=== PATIENT | male | born 1960 | race African-American/Black ===

== ENCOUNTER 2016-06-28 11:39 | Emergency (ER) | payer SELFPAY ==
[~2016-06-28] VITALS: Ht 188 cm; Wt 133.8 kg
[~2016-06-28 11:39] MED LIST: CIPR500T94 PO; ONDA8TAB12 PO; [UNRECOGNIZED DRUG - OTHER]
[2016-06-28 12:23] VITALS: BP 127/84
[2016-06-28 13:05] LABS: BILIRUBIN,URINE NEGATIVE (NEG); GLUCOSE,URINE NEGATIVE (NEG); NITRITE,URINE NEGATIVE (NEG); PH,URINE 5.5; PROTEIN,URINE NEGATIVE (NEG-TRACE)
--- NOTE | 2016-06-28 13:12 | RAD ---
Indication chest pain tachycardia nausea. Aeration of symptoms 2 days. PA and lateral views of the chest were obtained. Comparison is made to an exam 10/30/2015. On the frontal image there is a density at the right lung base medially. This could represent a vascular shadow. A small area of infiltrate or pulmonary nodule cannot be entirely excluded. Follow-up imaging should be considered. The left lung is clear. There is no pleural fluid or pneumothorax. The heart and pulmonary vessels are normal. IMPRESSION: Possible small nodule or infiltrate at the right lung base medially
[2016-06-28 13:21] LABS: BACTERIA,URINE 0 /HPF (0-FEW); RBC,URINE 0 /HPF (0-2); SQUAMOUS EPITHELIAL CELL,UR MOD /LPF
--- NOTE | 2016-06-28 13:39 | ED.ADGEN ---
Past Medical History Past Medical History: No Pertinent History Past Surgical History: Other Additional Past Surgical Histo: left knee, right shoulder Alcohol Use: None Drug Use: None Adult General Chief Complaint Chief Complaint: FEVER HPI HPI Patient is a 56 year old -[place] male presents with those, flank pain and urinary frequency. No fever, sweats. Reports one episode of vomiting yesterday x1. Patient reports recent episode of chest pain which is resolved since vomiting. No other acute symptoms or complaints. History of urinary tract infections or prostatitis. Review of Systems Review of Systems Review of system as per HPI. Current Medications Current Medications Current Medications Medications (Trade) Dose Ordered Sig/Lita Start Time Stop Time Status Last Admin Dose Admin Levofloxacin (Levaquin) 500 mg 1X ONCE 06/28/16 14:15 06/28/16 14:16 DC 06/28/16 14:17 500 MG Ondansetron HCl (Zofran Odt) 4 mg 1X ONCE 06/28/16 14:15 06/28/16 14:16 DC 06/28/16 14:17 4 MG Allergies Allergies Allergies Coded Allergies Type Severity Reaction Last Updated Verified Penicillins Allergy Intermediate 06/28/16 Yes Physical Exam Physical Exam Constitutional: Well developed, well nourished, no acute distress, non-toxic appearance. HENT: Normocephalic, atraumatic, bilateral external ears normal, oropharynx moist, no oral exudates, nose normal. Eyes: PERRLA, EOMI, conjunctiva normal. Neck: Normal range of motion, no tenderness, supple. Cardiovascular:Heart rate regular rhythm, no murmur. Lungs & Thorax: Bilateral breath sounds clear to auscultation. Abdomen: Bowel sounds normal, soft, no tenderness. Skin: Warm, dry. Back: No tenderness. Extremities: No tenderness. Neurologic: Alert and oriented X 3, normal motor function, normal sensory function, no focal deficits noted. Psychologic: Affect normal. Current Patient Data Vital Signs Vital Signs Date Time Temp Pulse Resp B/P Pulse Ox O2 Delivery O2 Flow Rate FiO2 06/28/16 12:23 98.1 85 20 127/84 100 Room Air 98.1 Lab Values Laboratory Tests Test 06/28/16 12:50 Urine Collection Type Unknown Urine Color Yellow Urine Clarity Clear Urine pH 5.5 Urine Specific [place] 1.020 Urine Protein Negativemg/dL (NEG-TRACE) Urine Glucose (UA) Negativemg/dL (NEG) Urine Ketones (Stick) Negativemg/dL (NEG) Urine Blood Negative (NEG) Urine Nitrite Negative (NEG) Urine Bilirubin Negative (NEG) Urine Urobilinogen Dipstick 1.0mg/dL (0.2 mg/dL) Urine Leukocyte Esterase Moderate (NEG) Urine RBC 0/HPF (0-2) Urine WBC 11-20/HPF (0-4) Urine Squamous Epithelial Cells Mod/LPF Urine Bacteria 0/HPF (0-FEW) Urine Mucus Slight/LPF EKG EKG [EKG: Normal sinus rhythm, no acute ST-T wave changes.] Radiology/Procedures Radiology/Procedures [Chest x-ray: No acute cardiopulmonary disease.] Impressions: Urinary tract infection and generalized weakness Course & Med Decision Making Course & Med Decision Making Pertinent Labs and Imaging studies reviewed. (See chart for details) [Antibiotics given. Will continue supportive treatment with PCP follow-up. Return precautions reviewed.] Dragon Disclaimer Dragon Disclaimer This electronic medical record was generated, in whole or in part, using a voice recognition dictation system. CHANDRAKANT COREA DO June 28, 2016 13:39
[2016-06-28] MEDS ORDERED: ONDANSETRON ODT 4 MG TAB.RAPDIS. PO ONE (14:15)
[2016-06-28] MEDS ORDERED: LEVOFLOXACIN 500 MG TABLET PO ONE (14:15)
--- NOTE | 2016-06-28 15:54 | EKG ---
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
== END 2016-06-28 14:36 | disposition home or self-care (01) ==
LOC: ER 11:39
DX: N39.0 Urinary tract infection, site not specified (principal); R53.1 Weakness; R07.89 Other chest pain; Z88.0 Allergy status to penicillin
CPT/HCPCS: 71020; 81001; 87086; 93005; 99285; Q0162

== ENCOUNTER 2017-12-29 18:54 | Emergency (ER) | payer SELFPAY ==
[~2017-12-29] VITALS: Ht 190.5 cm; Wt 129.3 kg
[2017-12-29 18:54] VITALS: BP 156/82
[2017-12-29] MEDS: CYCLOBENZAPRINE 10 MG TABLET. PO ONE (20:15)
[2017-12-29] MEDS: KETOROLAC 60 MG/2 ML INJ. IM ONE (20:16)
[2017-12-29] MEDS ORDERED: CYCL5TAB PO (20:52)
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
== END 2017-12-29 21:05 | disposition home or self-care (01) ==
LOC: ER 18:54
DX: S13.4XXA Sprain of ligaments of cervical spine, initial encounter (principal); G89.29 Other chronic pain; M25.511 Pain in right shoulder; M54.5 Low back pain; Z88.0 Allergy status to penicillin; V43.52XA Car driver injured in collision with other type car in traffic accident, initial encounter; Y93.89 Activity, other specified; Y92.410 Unspecified street and highway as the place of occurrence of the external cause; Y99.8 Other external cause status
CPT/HCPCS: 72050; 72110; 73030; 96372; 99284; J1885